=== PATIENT | female | born 1975 | race Caucasian/White ===

== ENCOUNTER → 2016-07-29 | Outpatient (CLI) | payer BC ==
[2016-07-29 16:12] LABS: HEMOGLOBIN 10.6 gm/dl (12.3-15.3); RED BLOOD COUNT 4.12 M/UL (4.00-5.10); WHITE BLOOD COUNT 4.4 K/UL (4.5-11.0)
== END ==
LOC: LAB 15:18
PROVIDERS: Internal Medicine
DX: E05.00 Thyrotoxicosis with diffuse goiter without thyrotoxic crisis or storm (principal)
CPT/HCPCS: 36415; 80076; 83520; 84439; 84443; 84481; 85025

== ENCOUNTER → 2020-03-17 | Outpatient (CLI) | payer BC, OTHER ==
[2020-03-17 14:44] LABS: HEMOGLOBIN 12.8 gm/dl (12.3-15.3); RED BLOOD COUNT 4.43 M/UL (4.00-5.10)
[2020-03-17 15:06] LABS: BUN/CREATININE RATIO 12 (0-10)
== END ==
LOC: LAB 14:08
PROVIDERS: Nurse Practitioner Family
DX: D64.9 Anemia, unspecified (principal); R00.2 Palpitations; R53.83 Other fatigue; Z86.39 Personal history of other endocrine, nutritional and metabolic disease
CPT/HCPCS: 36415; 80053; 82607; 82746; 83735; 84439; 84443; 85025

== ENCOUNTER → 2021-03-05 | Outpatient (CLI) | payer OTHER | LOC: EROP 10:11 | DX: Z20.822 Contact with and (suspected) exposure to COVID-19 (principal) | CPT/HCPCS: U0002 ==